=== PATIENT | male | born 1985 | race Caucasian/White ===

== ENCOUNTER 2017-08-15 23:29 | Inpatient (IN) | payer OTHER ==
[2017-08-15 23:52] VITALS: BMI 25.7
--- NOTE | 2017-08-15 23:54 | HP ---
CIWA Score - CIWA Score Nausea/Vomitin-No Nausea/No Vomiting Muscle Tremors: 4-Moderate,w/Arms Extend Anxiety: 4-Mod. Anxious/Guarded Agitation: 4-Moderately Restless Paroxysmal Sweats: 3 Orientation: 1-Uncertain about Date Tacttile Disturbances: 0-None Auditory Disturbances: 0-None Visual Disturbances: 0-None Headache: 0-None Present CIWA-Ar Total Score: 16 Admission ROS BHS - HPI Chief Complaint: C/O WITHDRAWAL SX'S. SEEKING DETOX FOR ALCOHOLISM Allergies/Adverse Reactions: Allergies Allergy/AdvReac Type Severity Reaction Status Date / Time No Known Allergies Allergy Verified 08/15/17 23:49 History of Present Illness: 32 Y.O. MALE WITH POLYSUBSTANCE ABUSE HERE FOR DETOX FROM ALCOHOL. CLIENT WAS REFERRED BY [facility] AFTER PRESENTING THERE FOR INTOXICATION AND BLACKING OUT. THIS IS HIS FIRST TIME IN INPATIENT TXMENT. REPORTS LONGEST CLEANEST TIME 1 YEAR. PMHX: WITHDRAWAL SEIZURES FROM ALCOHOL. DENIES ANY MENTAL HEALTH ALTHOUGH HE PRESENTS WITH ANXIETY AND C/O "VERY THIRSTY". DENIES SI/HI AND AV HALLUCINATIONS. Exam Limitations: No Limitations - Ebola screening Have you traveled outside of the country in the last 21 days: No Have you had contact with anyone from an Ebola affected area: No Have you been sick,other than usual withdrawal symptoms: No Do you have a fever: No - Review of Systems Constitutional: Chills, Loss of Appetite, Night Sweats EENT: reports: No Symptoms Reported, Other (EYE GLASSES) Respiratory: reports: No Symptoms reported Cardiac: reports: No Symptoms Reported GI: reports: Poor Fluid Intake, Other (C/O THIRST) : reports: No Symptoms Reported Musculoskeletal: reports: No Symptoms Reported Integumentary: reports: Flushing Neuro: reports: Seizure (R/T WITHDRAWAL) Endocrine: reports: No Symptoms Reported Hematology: reports: No Symptoms Reported Psychiatric: reports: Anxious Other Systems: Reviewed and Negative Patient History - Patient Medical History Hx Anemia: No Hx Asthma: No Hx Chronic Obstructive Pulmonary Disease (COPD): No Hx Cancer: No Hx Cardiac Disorders: No Hx Congestive Heart Failure: No Hx Hypertension: No Hx Hypercholesterolemia: No Hx Pacemaker: No HX Cerebrovascular Accident: No Hx Seizures: Yes (R/T WTOH WITHDRAWAL) Hx Dementia: No Hx Diabetes: No Hx Gastrointestinal Disorders: No Hx Liver Disease: No Hx Genitourinary Disorders: No Hx Sexually Transmitted Disorders: No Hx Renal Disease (ESRD): No Hx Thyroid Disease: No Hx Human Immunodeficiency Virus (HIV): No Hx Hepatitis C: No Hx Depression: No Hx Suicide Attempt: No Hx Bipolar Disorder: No Hx Schizophrenia: No Other Medical History: DENIES - Patient Surgical History Past Surgical History: No - PPD History Previous Implant?: Yes Documented Results: Negative w/o proof Implanted On Prior R Admission?: No PPD to be Administered?: Yes - Smoking Cessation Smoking history: Current every day smoker Have you smoked in the past 12 months: Yes Aproximately how many cigarettes per day: 10 Cigars Per Day: 0 Hx Chewing Tobacco Use: No Initiated information on smoking cessation: Yes 'Breaking Loose' booklet given: 08/15/17 - Substance & Tx. History Hx Alcohol Use: Yes Hx Substance Use: Yes Substance Use Type: Alcohol, Cocaine, Marijuana Hx Substance Use Treatment: No - Substances Abused WINE Route: Oral Frequency: Daily Amount used: 3 LITERS Age of first use: 15 Date of Last Use: 08/15/17 COCAINE Route: Inhalation Frequency: 1-3 times last 30 days Amount used: 4 BAGS Age of first use: 20 Date of Last Use: 08/10/17 THC Route: Smoking Frequency: 1-3 times last 30 days Amount used: 1 JOINT Age of first use: 16 Date of Last Use: 08/14/17 Family Disease History - Family Disease History Family History: Denies Admission Physical Exam S - Physical General Appearance: Yes: Appropriately Dressed, Moderate Distress, Tremorous, Sweating, Anxious HEENTM: Yes: EOMI, Normocephalic, Normal Voice, JUAN MANUEL, Pharynx Normal, Nasal Congestion, Other (DRY MM) Respiratory: Yes: Chest Non-Tender, Lungs Clear, Normal Breath Sounds, No Respiratory Distress, No Accessory Muscle Use Neck: Yes: No masses,lesions,Nodules, Supple, Trachea in good position Breast: Yes: Breast Exam Deferred Cardiology: Yes: Regular Rhythm, S1, S2, Tachycardia Abdominal: Yes: Normal Bowel Sounds, Non Tender, Flat, Soft Genitourinary: Yes: Within Normal Limits Back: Yes: Normal Inspection Musculoskeletal: Yes: Within Normal Limits Extremities: Yes: Normal Capillary Refill, Normal Range of Motion, Non-Tender, Tremors Neurological: Yes: Motor Strength 5/5 Integumentary: Yes: Other (FLUSHING BRUSING OF ARMS FROM BLOOD DRAWS WHILE IN HOSPITAL) Lymphatic: Yes: Within Normal Limits - Addiitonal Findings: WITHDRAWAL SX'S - Diagnostic (1) Alcohol dependence with uncomplicated withdrawal Current Visit: Yes Status: Chronic (2) Cocaine dependence, uncomplicated Current Visit: Yes Status: Chronic (3) Cannabis dependence, uncomplicated Current Visit: Yes Status: Chronic (4) Alcohol withdrawal seizure Current Visit: Yes Status: Chronic Qualifiers: Complication of substance-induced condition: uncomplicated Qualified Code(s ): F10.230 - Alcohol dependence with withdrawal, uncomplicated (5) Anxiety Current Visit: Yes Status: Acute (6) Dry mucous membranes Current Visit: Yes Status: Acute (7) Dehydration Current Visit: Yes Status: Acute (8) Nicotine dependence Current Visit: Yes Status: Chronic Qualifiers: Nicotine product type: cigarettes Substance use status: uncomplicated Qualified Code(s): F17.210 - Nicotine dependence, cigarettes, uncomplicated Cleared for Admission [facility] - Detox or Rehab [facility] Level of Care: Medically Managed Detox Regimen/Protocol: Librium Claeared for Rehab Admission: No
[2017-08-16] MEDS ORDERED: guaiFENesin/D-METHORPHAN HB 10 ML UNIT-DOSE CUPS PO PRN (00:12)
[2017-08-16] MEDS ORDERED: P-EPHED 60MG/TRIPROLIDI 2.5MG TABLET PO PRN (00:12)
[2017-08-16] MEDS ORDERED: NICOTINE POLACRILEX 2 MG GUM BC PRN (00:12)
[2017-08-16] MEDS ORDERED: MAGNESIUM CITRATE 300 ML BOTTLE PO PRN (00:12)
[2017-08-16] MEDS ORDERED: MAG HYDROX/AL HYDROX/SIMETH 30 ML UNIT-DOSE CUP PO PRN (00:12)
[2017-08-16] MEDS ORDERED: LOPERAMIDE HCL 2 MG CAPSULE PO PRN (00:12)
[2017-08-16] MEDS ORDERED: MAGNESIUM HYDROX 2400MG/30ML ORAL SUSPENSION 30 ML CUP PO PRN (00:12)
[2017-08-16] MEDS ORDERED: MENTHOL/PHENOL 1 EACH UD MM PRN (00:12)
[2017-08-16] MEDS ORDERED: IBUPROFEN 400 MG TABLET (FP) PO PRN (00:12)
[2017-08-16] MEDS ORDERED: ACETAMINOPHEN 325 MG TABLET (FP) PO PRN (00:12)
[2017-08-16] MEDS ORDERED: ONDANSETRON *ODT* 4 MG TABLET SL PRN (00:14)
[2017-08-16] MEDS ORDERED: cloNIDine HCL 0.1 MG TABLET PO PRN (00:14)
[2017-08-16] MEDS: chlordiazePOXIDE HCL 25 MG CAPSULE PO PRN ×2 (01:02→14:26)
[2017-08-16] MEDS: chlordiazePOXIDE HCL 25 MG CAPSULE PO SCH ×4 (06:09→22:24)
--- NOTE | 2017-08-16 09:52 | EKG ---
Test Reason : Blood Pressure : / mmHG Vent. Rate : 102 BPM Atrial Rate : 102 BPM P-R Int : 130 ms QRS Dur : 096 ms QT Int : 340 ms P-R-T Axes : 061 060 051 degrees QTc Int : 443 ms SINUS TACHYCARDIA OTHERWISE NORMAL ECG NO PREVIOUS ECGS AVAILABLE Confirmed by BRANT RUBIO, JENNIFER ([id number]) on 08/16/2017 9:52:26 AM Referred By: Sameer Orellana Confirmed By:JENNIFER GUO MD
[2017-08-16] MEDS ORDERED: PRENATAL VITAMINS W/ FOLIC ACID TABLET (FP) PO SCH (10:00)
[2017-08-16] MEDS ORDERED: NICOTINE 14 MG/24 HOURS TOPICAL PATCH TD SCH (10:00)
--- NOTE | 2017-08-16 12:44 | PN ---
S CIWA - CIWA Score Nausea/Vomitin Muscle Tremors: 4-Moderate,w/Arms Extend Anxiety: 3 Agitation: 3 Paroxysmal Sweats: 1-Minimal Palms Moist Orientation: 0-Oriented Tacttile Disturbances: 0-None Auditory Disturbances: 0-None Visual Disturbances: 0-None Headache: 0-None Present CIWA-Ar Total Score: 14 BHS Progress Note (SOAP) Subjective: shakes sweats nausea Objective: 08/16/17 12:41 A & O x 3 Sleepy, arousable Vital Signs Temperature 97.0 F L 08/16/17 09:27 Pulse Rate 99 H 08/16/17 09:27 Respiratory Rate 18 08/16/17 09:27 Blood Pressure 151/110 08/16/17 09:27 O2 Sat by Pulse Oximetry (%) Pending lab/UA results Assessment: 08/16/17 12:42 withdrawal sx Plan: continue detox
--- NOTE | 2017-08-16 13:03 | CONSULT ---
[facility] Psychiatric Consult - Data Date of interview: 08/16/17 Admission source: [facility] Identifying data: First admission to [facility] for this 32 y/o male seeking detox treatment on for alcohol,cocaine and cannabis dependence.Patient is ,a father of one,domiciled,unemployed and reportedly deprived of any source of income. Substance Abuse History: Confirmed by patient in this interview.Details in current [facility] report : Smoking history: Current every day smoker. Have you smoked in the past 12 months: Yes. Aproximately how many cigarettes per day: 10. Cigars Per Day: 0. Hx Chewing Tobacco Use: No. Initiated information on smoking cessation: Yes. 'Breaking Loose' booklet given: 08/15/17. - Substance & Tx. History. Hx Alcohol Use: Yes. Hx Substance Use: Yes. Substance Use Type : Alcohol, Cocaine, Marijuana. Hx Substance Use Treatment: No. - Substances Abused. WINE. Route: Oral. Frequency: Daily. Amount used: 3 LITERS. Age of first use: 15. Date of Last Use: 08/15/17. COCAINE. Route: Inhalation. Frequency: 1-3 times last 30 days. Amount used: 4 BAGS. Age of first use: 20. Date of Last Use: 08/10/17. THC. Route: Smoking. Frequency: 1-3 times last 30 days. Amount used: 1 JOINT. Age of first use: 16. Date of Last Use: 08/14/17 Medical History: Hypertension and seizure disorder. Psychiatric History: Patient denies history of psychiatric hospitalizations, suicide attempts or psychiatric OPD care. Physical/Sexual Abuse/Trauma History: Patient denies. Additional Comment: No toxicology available. Mental Status Exam - Mental Status Exam Alert and Oriented to: Time, Place, Person Cognitive Function: Good Patient Appearance: Well Groomed (tattoos on both upper extremities) Mood: Nervous, Anxious Affect: Mood Congruent Patient Behavior: Fatigued, Appropriate, Cooperative Speech Pattern: Clear Voice Loudness: Normal Thought Process: Intact, Goal Oriented Thought Disorder: Not Present Hallucinations: Denies Suicidal Ideation: Denies Homicidal Ideation: Denies Insight/Judgement: Poor Sleep: Well Appetite: Good Muscle strength/Tone: Normal Gait/Station: Normal Psychiatric Findings - Problem List ([place] 1, 2,3) (1) Alcohol dependence with uncomplicated withdrawal Current Visit: Yes Status: Acute (2) Cannabis dependence, uncomplicated Current Visit: Yes Status: Acute (3) Cocaine dependence, uncomplicated Current Visit: Yes Status: Acute (4) Nicotine dependence Current Visit: Yes Status: Acute Qualifiers: Nicotine product type: cigarettes Substance use status: uncomplicated Qualified Code(s): F17.210 - Nicotine dependence, cigarettes, uncomplicated - Initial Treatment Plan Initial Treatment Plan: Psychoeducation and support.Detoxification in progress.Observation.
[2017-08-16] MEDS: cloNIDine HCL 0.1 MG TABLET PO PRN ×2 (14:26→22:22)
[2017-08-16] MEDS: hydrOXYzine PAMOATE 50 MG CAPSULE (FP) PO PRN ×2 (17:47→22:22)
[2017-08-16 21:56] LABS: URINE APPEARANCE CLEAR; URINE BILIRUBIN NEGATIVE (<2.0 mg/dL); URINE BLOOD NEGATIVE (NEGATIVE); URINE COLOR LTYELLOW; URINE GLUCOSE (UA) NEGATIVE (NEGATIVE); URINE KETONE NEGATIVE (NEGATIVE); URINE LEUK ESTERASE NEGATIVE (NEGATIVE); URINE NITRITE NEGATIVE (NEGATIVE); URINE PROTEIN NEGATIVE (NEGATIVE); URINE UROBILINOGEN NEGATIVE mg/dL (0.2-1.0)
[2017-08-16] MEDS ORDERED: MELATONIN 5 MG TABLETS PO PRN (22:00)
[2017-08-16] MEDS ORDERED: THIAMINE HCL 100 MG TABLET (FP) PO SCH (22:00)
[2017-08-17] MEDS ORDERED: chlordiazePOXIDE HCL 25 MG CAPSULE PO SCH (05:00)
[2017-08-17 05:57] VITALS: BP 108/60; PULSE 72; TEMP 97.5
[2017-08-17] MEDS: chlordiazePOXIDE HCL 25 MG CAPSULE PO PRN (08:34)
[2017-08-17 09:56] LABS: HEMATOCRIT 44.1 % (35.4-49); HEMOGLOBIN 15.2 GM/dL (11.7-16.9); MCH 34.3 pg (25.7-33.7); MCHC 34.5 g/dl (32.0-35.9); MEAN CELL VOLUME 99.4 fl (80-96); MEAN PLT VOLUME 8.2 fl (7.5-11.1); PLATELET COUNT 222 K/MM3 (134-434); RBC 4.44 M/mm3 (4.00-5.60); RDW 14.1 % (11.9-15.9); WHITE BLOOD COUNT 4.7 K/mm3 (4.0-10.0)
[2017-08-17 10:18] LABS: CHLORIDE 106 mmol/L (98-107); POTASSIUM 3.9 mmol/L (3.5-5.1); SODIUM 140 mmol/L (136-145)
[2017-08-17 10:30] LABS: ALBUMIN 3.5 g/dl (3.4-5.0); ALK PHOS 69 U/L (45-117); ANION GAP 7 (8-16); BILIRUBIN,TOTAL 0.5 mg/dL (0.2-1.0); BLOOD UREA NITROGEN 7 mg/dL (7-18); CALCIUM 8.8 mg/dL (8.5-10.1); CO2 27 mmol/L (21-32); CREATININE 0.8 mg/dL (0.7-1.3); GLUCOSE,RANDOM 104 mg/dL (74-106); SGOT/AST 64 U/L (15-37); SGPT/ALT 95 U/L (12-78); TOT PROT 7.1 g/dl (6.4-8.2)
--- NOTE | 2017-08-17 11:26 | DS ---
[facility] Detox Discharge Summary Admission Date: 08/15/17 Discharge Date: 08/17/17 - History Present History: Alcohol Dependence Additional Comments: 22 years old male admitted 08/15/17 for alcohol withdrawal patient wants to terminate alcohol detox regimen "I am going to [facility]" patient is alert oriented x 3 no acute distress, ate breakfast coherent denies alcohol withdrawal sx wants to leave the detox facility patient denies homocidal denies suicidal no self destructive behavior - Physical Exam Results Vital Signs: Vital Signs Temperature 97.5 F L 08/17/17 05:56 Pulse Rate 72 08/17/17 05:56 Respiratory Rate 18 08/17/17 05:56 Blood Pressure 108/60 08/17/17 05:56 O2 Sat by Pulse Oximetry (%) Pertinent Admission Physical Exam Findings: withdrawal sx Vital Signs Temperature 97.5 F L 08/17/17 05:56 Pulse Rate 72 08/17/17 05:56 Respiratory Rate 18 08/17/17 05:56 Blood Pressure 108/60 08/17/17 05:56 O2 Sat by Pulse Oximetry (%) Laboratory Last Values WBC 4.7 K/mm3 (4.0-10.0) 08/17/17 06:00 RBC 4.44 M/mm3 (4.00-5.60) 08/17/17 06:00 Hgb 15.2 GM/dL (11.7-16.9) 08/17/17 06:00 Hct 44.1 % (35.4-49) 08/17/17 06:00 MCV 99.4 fl (80-96) H 08/17/17 06:00 MCH 34.3 pg (25.7-33.7) H 08/17/17 06:00 MCHC 34.5 g/dl (32.0-35.9) 08/17/17 06:00 RDW 14.1 % (11.9-15.9) 08/17/17 06:00 Plt Count 222 K/MM3 (134-434) 08/17/17 06:00 MPV 8.2 fl (7.5-11.1) 08/17/17 06:00 Sodium 140 mmol/L (136-145) 08/17/17 06:00 Potassium 3.9 mmol/L (3.5-5.1) 08/17/17 06:00 Chloride 106 mmol/L (98-107) 08/17/17 06:00 Carbon Dioxide 27 mmol/L (21-32) 08/17/17 06:00 Anion Gap 7 (8-16) L 08/17/17 06:00 BUN 7 mg/dL (7-18) 08/17/17 06:00 Creatinine 0.8 mg/dL (0.7-1.3) 08/17/17 06:00 Creat Clearance w eGFR > 60 (>60) 08/17/17 06:00 Random Glucose 104 mg/dL (74-106) 08/17/17 06:00 Calcium 8.8 mg/dL (8.5-10.1) 08/17/17 06:00 Total Bilirubin 0.5 mg/dL (0.2-1.0) 08/17/17 06:00 AST 64 U/L (15-37) H 08/17/17 06:00 ALT 95 U/L (12-78) H 08/17/17 06:00 Alkaline Phosphatase 69 U/L (45-117) 08/17/17 06:00 Total Protein 7.1 g/dl (6.4-8.2) 08/17/17 06:00 Albumin 3.5 g/dl (3.4-5.0) 08/17/17 06:00 Urine Color Ltyellow 08/16/17 21:00 Urine Appearance Clear 08/16/17 21:00 Urine pH 7.0 (5.0-8.0) 08/16/17 21:00 Ur Specific [place] 1.011 (1.001-1.035) 08/16/17 21:00 Urine Protein Negative (NEGATIVE) 08/16/17 21:00 Urine Glucose (UA) Negative (NEGATIVE) 08/16/17 21:00 Urine Ketones Negative (NEGATIVE) 08/16/17 21:00 Urine Blood Negative (NEGATIVE) 08/16/17 21:00 Urine Nitrite Negative (NEGATIVE) 08/16/17 21:00 Urine Bilirubin Negative (<2.0 mg/dL) 08/16/17 21:00 Urine Urobilinogen Negative mg/dL (0.2-1.0) 08/16/17 21:00 Ur Leukocyte Esterase Negative (NEGATIVE) 08/16/17 21:00 RPR Titer Nonreactive (NONREACTIVE) 08/17/17 06:00 lab noted - Treatment Hospital Course: Detox Protocol Followed, Responded well Patient has Accepted a Rehab Referral to: [facility] - Medication Discharge Medications: Ambulatory Orders NK [No Known Home Medication] 08/15/17 - Diagnosis (1) Alcohol dependence with uncomplicated withdrawal Current Visit: Yes Status: Acute (2) Nicotine dependence Current Visit: Yes Status: Acute Qualifiers: Nicotine product type: cigarettes Substance use status: in withdrawal Qualified Code(s): F17.213 - Nicotine dependence, cigarettes, with withdrawal - AMA Did Patient Leave Against Medical Advice: Yes
[2017-08-18] MEDS ORDERED: chlordiazePOXIDE 5 MG CAPSULE PO SCH (05:00)
[2017-08-19] MEDS ORDERED: chlordiazePOXIDE HCL 10 MG CAPSULE PO SCH (05:00)
== END 2017-08-17 09:22 | disposition left against medical advice (07) | DRG 770 ==
LOC: YASAS 23:29 → Y6N 23:53
PROVIDERS: ADMIT Internal Medicine; ATTEND Internal Medicine
PROC: HZ2ZZZZ Detoxification Services for Substance Abuse Treatment (ICD-10-PCS; principal; 2017-08-15)
DX: F10.230 Alcohol dependence with withdrawal, uncomplicated (principal); F14.20 Cocaine dependence, uncomplicated; F12.20 Cannabis dependence, uncomplicated; F17.210 Nicotine dependence, cigarettes, uncomplicated; F41.9 Anxiety disorder, unspecified; G40.509 Epileptic seizures related to external causes, not intractable, without status epilepticus; E86.0 Dehydration
CPT/HCPCS: 36415; 80053; 81003; 85027; 86593; 93005; 93010; J0735